=== PATIENT | male | born 1950 | race Caucasian/White ===

== ENCOUNTER 2017-11-08 13:28 | Outpatient (CLI) | payer OTHER ==
[2017-11-08 15:35] LABS: Mean Corpuscular HGB CONC 34.2 g/dL (32.0-36.0); Mean Corpuscular Hemoglobin 32.1 pg (27.0-31.0); Mean Corpuscular Volume 93.9 fl (80.0-94.0); Mean Platelet Volume 8.6 fL (7.4-10.4); Platelet Count 218 thou/uL (130-400); RBC Distribution Width 11.1 % (11.5-14.5); Red Blood Cell (RBC) Count 4.68 mill/uL (4.70-6.10); White Blood Cell (WBC) Count 5.7 thou/uL (4.8-10.8)
[2017-11-08 15:42] LABS: PTT 28.9 SEC (22.9-36.1); Prothrombin Time 13.2 SEC (12.0-14.7)
[2017-11-08 15:57] LABS: Anion Gap 12 mmol/L (10-20); BUN (Urea Nitrogen) 15 mg/dL (8.4-25.7); Calc. Creatinine Clearance 0 mL/min (70-130); Calcium 9.5 mg/dL (7.8-10.44); Carbon Dioxide 26 mmol/L (23-31); Chloride 104 mmol/L (98-107); Estimated GFR-MDRD 89; Glucose 87 mg/dL (80-115); Potassium 4.1 mmol/L (3.5-5.1); Sodium 138 mmol/L (136-145)
--- NOTE | 2018-01-12 08:34 | EKG ---
Test Reason : Blood Pressure : / mmHG Vent. Rate : 078 BPM Atrial Rate : 078 BPM P-R Int : 158 ms QRS Dur : 082 ms QT Int : 346 ms P-R-T Axes : 060 003 053 degrees QTc Int : 394 ms Normal sinus rhythm Normal ECG No previous ECGs available Confirmed by LYNN BEST, IVONE ([id number]) on 01/12/2018 8:34:32 AM Referred By: PERCY Confirmed By:IVONE BAILEY MD
== END 2017-11-08 13:29 | disposition home or self-care (01) ==
LOC: LABBT 13:28
PROVIDERS: ATTEND Surgery
DX: Z01.818 Encounter for other preprocedural examination (principal); M48.061 Spinal stenosis, lumbar region without neurogenic claudication; M54.16 Radiculopathy, lumbar region
CPT/HCPCS: 80048; 85027; 85610; 85730; 93005; 93010

== ENCOUNTER 2017-11-19 08:04 | Day surgery (SDC) | payer OTHER ==
[2017-11-08 13:57] VITALS: BMI 25.1
[2017-11-19] MEDS ORDERED: CEFAZOLIN/Water 2 GM/20 ML SYRINGE ONE (08:17)
[2017-11-19] MEDS ORDERED: Bacitracin Zinc Ointment 30 gm TUBE ONE ×2 (09:10→10:21)
[2017-11-19] MEDS ORDERED: Thrombin 5000 UNITS/5 ML VIAL ONE ×2 (09:10→10:21)
[2017-11-19] MEDS ORDERED: Sodium Chloride 0.9% 10 ML ONE (10:21)
[2017-11-19] MEDS ORDERED: Fentanyl 100 MCG/2 ML VIAL ONE (10:45)
[2017-11-19] MEDS ORDERED: HYDROmorphone 2 MG/ML VIAL SLOW IVP PRN (12:39)
[2017-11-19] MEDS ORDERED: Morphine Sulfate 2 MG/ML SYRINGE SLOW IVP PRN (12:39)
[2017-11-19] MEDS ORDERED: Ondansetron HCl/PF 4 MG/2 ML Vial IVP PRN ×2 (12:39→13:33)
[2017-11-19] MEDS ORDERED: HYDROmorphone 0.5 MG/0.5 ML SYRINGE ONE ×2 (12:45→13:19)
--- NOTE | 2017-11-19 13:22 | OP ---
DATE OF PROCEDURE: 11/19/2017 OR: OR #12 WOUND TYPE: Type 1 wound. SURGEON: Jeet Moscoso M.D. CAR LUBRICATOR: Sharath Mckeon PA-C. PREPROCEDURE DIAGNOSES: Lumbar stenosis, low back and right greater than left lower extremity pain. POSTPROCEDURE DIAGNOSES: Lumbar stenosis, low back and right greater than left lower extremity pain. PROCEDURE: L3-L4, L4-L5 laminectomies, partial facetectomies and foraminotomies over the L3, L4, L5 nerve roots bilaterally. DESCRIPTION OF PROCEDURE: After informed consent was obtained from the patient, the patient brought to OR 12. Proper patient pause and identification was carried out. He was placed under excellent ge neral endotracheal anesthesia and positioned prone on the operating room table. All appropriate poin ts were padded. We identified the L3, L4, L5 dorsal spines and lamina and this region was sterilely cleansed, prepared and draped. Proper patient pause and identification was carried out. The wound w as then opened with a combination of sharp, monopolar and blunt dissection. The L3, L4, L5 dorsal sp elisa and lamina were exposed. Localization film confirmed our area of interest. We then performed L 3, L4, L5 laminectomies, partial facetectomies and foraminotomies over the L3, L4, L5 nerve roots. C opious irrigation occurred throughout as did maximizing hemostasis. There was no spinal fluid leak. The wound was then closed in anatomic layers. We were satisfied with our decompression. The wound again was closed in anatomic layers after the sprinkling of vancomycin powder. The patient then elian ged from anesthesia.
[2017-11-19] MEDS ORDERED: Bisacodyl 10 MG SUPP PR PRN (13:33)
[2017-11-19] MEDS ORDERED: Acetaminophen 325 MG TAB PO PRN (13:33)
[2017-11-19] MEDS ORDERED: traMADol HCl 50 MG TAB PO PRN (13:33)
[2017-11-19] MEDS ORDERED: Promethazine HCl 25 MG/ML VIAL IM PRN (13:33)
[2017-11-19] MEDS ORDERED: Mag-Al 1200 mg/1200 mg/30 ML UDCUP PO PRN (13:33)
[2017-11-19] MEDS ORDERED: Fleet Enema 133 ML BOT PR PRN (13:33)
[2017-11-19] MEDS ORDERED: Milk Of Magnesia 30 ML UDCUP PO PRN (13:33)
[2017-11-19] MEDS ORDERED: Ergocalciferol 1.25 MG(50,000 UNITS) CAP PO SCH ×2 (13:45→14:30)
[2017-11-19] MEDS ORDERED: [UNRECOGNIZED DRUG - OTHER] PO SCH (15:00)
[2017-11-19] MEDS: Sodium Chloride 0.9% 1,000 ML IV SCH (15:45)
[2017-11-19] MEDS: CEFAZOLIN/Water 2 GM/20 ML SYRINGE SLOW IVP SCH ×2 (17:02→23:48)
[2017-11-19] MEDS: Gabapentin 300 MG CAP PO SCH (20:09)
[2017-11-19] MEDS: Multivitamin W/ Minerals 1 TAB PO SCH (20:09)
[2017-11-19] MEDS: tiZANidine HCl 4 MG TAB PO PRN (20:39)
[2017-11-19] MEDS: [UNRECOGNIZED DRUG - OTHER] PO SCH ×2 (21:48→21:49)
[2017-11-19] MEDS: [UNRECOGNIZED DRUG - OTHER] PO SCH (21:49)
[2017-11-20] MEDS: tiZANidine HCl 4 MG TAB PO PRN ×2 (04:41→11:45)
[2017-11-20] MEDS: Sodium Chloride 0.9% 1,000 ML IV SCH (04:47)
[2017-11-20] MEDS ORDERED: [UNRECOGNIZED DRUG - OTHER] PO SCH (09:00)
[2017-11-20] MEDS ORDERED: [UNRECOGNIZED DRUG - OTHER] PO SCH (09:00)
[2017-11-20] MEDS ORDERED: [UNRECOGNIZED DRUG - OTHER] PO SCH (09:00)
[2017-11-20] MEDS ORDERED: MULTIVIT MIN PO SCH (09:00)
[2017-11-20] MEDS ORDERED: [UNRECOGNIZED DRUG - OTHER] PO SCH (09:00)
[2017-11-20] MEDS ORDERED: [UNRECOGNIZED DRUG - OTHER] PO SCH (09:00)
[2017-11-20] MEDS ORDERED: GLUTATHIONE PO SCH (09:00)
[2017-11-20] MEDS ORDERED: [UNRECOGNIZED DRUG - OTHER] PO SCH (09:00)
[2017-11-20] MEDS ORDERED: [UNRECOGNIZED DRUG - OTHER] PO SCH (09:00)
--- NOTE | 2017-11-20 09:04 | PRG ---
DATE OF SERVICE: 11/20/2017 Mr. Shea is postoperative day 1 from L3-L5 decompressed laminectomy. He is doing well in regards to his postoperative criteria; however, he has had right groin and right posterior thigh pain consistent with L5 radiculitis. I suspect this will take time. There may be hip pathology as well. We will c ana laura to work on maximizing pain management and mobilize him. If he does well this morning we will dismiss him.
[2017-11-20] MEDS: Gabapentin 300 MG CAP PO SCH ×3 (09:25→14:27)
[2017-11-20] MEDS: Multivitamin W/ Minerals 1 TAB PO SCH (09:25)
[2017-11-20 11:54] VITALS: BP 133/90; TEMP 98.1
[2017-11-20] MEDS ORDERED: methylPREDNISolone 4 mg Tablet PO SCH ×2 (12:00)
[2017-11-20] MEDS ORDERED: Ketorolac Tromethamine 10 MG TAB PO SCH (12:00)
[2017-11-21] MEDS ORDERED: methylPREDNISolone 4 mg Tablet PO SCH ×2 (08:00→21:00)
[2017-11-22] MEDS ORDERED: methylPREDNISolone 4 mg Tablet PO SCH (08:00)
[2017-11-23] MEDS ORDERED: methylPREDNISolone 4 mg Tablet PO SCH (08:00)
[2017-11-24] MEDS ORDERED: methylPREDNISolone 4 mg Tablet PO SCH (08:00)
[2017-11-25] MEDS ORDERED: methylPREDNISolone 4 mg Tablet PO SCH (08:00)
== END 2017-11-20 15:45 | disposition home or self-care (01) ==
LOC: SDC 08:04 → ONC 13:33 → SDC 11-20 15:45
PROVIDERS: ATTEND Surgery
PROC: 01NB0ZZ Release Lumbar Nerve, Open Approach (ICD-10-PCS; principal; 2017-11-20)
DX: M48.061 Spinal stenosis, lumbar region without neurogenic claudication (principal); M54.16 Radiculopathy, lumbar region; E78.5 Hyperlipidemia, unspecified; G20 Parkinson's disease; M19.90 Unspecified osteoarthritis, unspecified site; F32.9 Major depressive disorder, single episode, unspecified; N40.0 Benign prostatic hyperplasia without lower urinary tract symptoms; Z79.899 Other long term (current) drug therapy; Z88.5 Allergy status to narcotic agent; Z87.891 Personal history of nicotine dependence
CPT/HCPCS: 76001; A4216; J0131; J1170; J2270; J3010; J3370; J3490

== ENCOUNTER 2020-10-24 10:53 | Day surgery (SDC) | payer OTHER ==
[2020-10-20 11:47] VITALS: BMI 25.1
[~2020-10-24 10:53] MED LIST: Lidocaine 1% PF 5 ML VIAL ONE; Ondansetron PF 4 MG/2 ML Vial ONE; PROPOFOL 200 MG/20 ML VIAL ONE
== END 2020-10-24 14:50 | disposition home or self-care (01) ==
LOC: MRI 10:53
PROVIDERS: ATTEND Surgery
DX: M48.061 Spinal stenosis, lumbar region without neurogenic claudication (principal); Z88.5 Allergy status to narcotic agent
CPT/HCPCS: 72100; 72148; J2405; J2704